=== PATIENT | male | born 1950 | race Caucasian/White ===

== ENCOUNTER 2017-06-15 23:23 | Emergency (ER) | payer MEDICARE, MEDICAID ==
[~2017-06-15] VITALS: Ht 154.9 cm; Wt 86.2 kg
--- NOTE | 2017-06-15 23:48 | NUR ---
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 PT STATES HE HAS A HX OF KIDNEY STONES.
--- NOTE | 2017-06-16 00:14 | NUR ---
Patient in bed, RR even and unlabored. Denies cardiopulmonary distress at this time. No chest pain at this time. Family at bedside.
[2017-06-16] MEDS ORDERED: ONDANSETRON 4 MG/2 ML VIAL IV ONE (00:15)
[2017-06-16] MEDS ORDERED: MORPHINE SULFATE 2 MG/1 ML DISP.SYRIN IV ONE (00:15)
[2017-06-16] MEDS ORDERED: IV NORMAL SALINE 1000 ML BAG IV ONE (00:15)
[2017-06-16] MEDS ORDERED: MORPHINE SULFATE 4 MG/1 ML DISP.SYRIN ONE (00:16)
[2017-06-16] MEDS ORDERED: ONDANSETRON 4 MG/2 ML VIAL ONE (00:16)
--- NOTE | 2017-06-16 00:25 | NUR ---
LAB AT PT BEDSIDE FOR BLOOD DRAW.
[2017-06-16 00:38] LABS: BASOPHILS # (AUTO) 0.1 K/uL (0.0-8.0); BASOPHILS % (AUTO) 0.7 % (0.0-2.0); EOSINOPHILS # (AUTO) 0.1 K/uL (0.0-0.7); HEMATOCRIT 40.8 % (36.7-47.1); LYMPHOCYTES # (AUTO) 2.6 K/uL (20.0-40.0); LYMPHOCYTES % (AUTO) 22.7 % (20.5-51.5); MEAN CORPUSCULAR HEMOGLOBIN 31.3 uug (23.8-33.4); MEAN CORPUSCULAR HGB CONC 34 g/dL (32.5-36.3); MEAN CORPUSCULAR VOLUME 91.3 fL (73.0-96.2); MONOCYTES # (AUTO) 0.9 K/uL (2.0-10.0); MONOCYTES % (AUTO) 8.2 % (0.0-11.0); NEUTROPHILS # (AUTO) 7.7 K/uL (1.8-8.9); NEUTROPHILS % (AUTO) 67.4 % (38.5-71.5); PLATELET COUNT (AUTO) 244 K/uL (152-348); RED BLOOD CELL COUNT(AUTO) 4.47 MIL/uL (4.06-5.63); WHITE BLOOD COUNT (AUTO) 11.4 K/uL (3.6-10.2)
[2017-06-16 00:58] LABS: CREATININE 1.2 mg/dL (0.6-1.3); POTASSIUM 3.9 mmol/L (3.5-5.1)
[2017-06-16 01:11] LABS: BILIRUBIN,DIRECT 0.1 mg/dL (0.0-0.2); BILIRUBIN,TOTAL 0.3 mg/dL (0.2-1.0); TOTAL PROTEIN, SERUM 7.5 g/dL (6.4-8.2)
--- NOTE | 2017-06-16 01:22 | NUR ---
Leslie shook in [facility] - 06/16/17 at 0125 by ARIAS Patient out of ER for CT scan.
--- NOTE | 2017-06-16 01:25 | NUR ---
Patient refused CT scan.
--- NOTE | 2017-06-16 01:41 | NUR ---
Patient discharged to home in stable conditon. Written and verbal after care instructions given. Patient verbalizes understanding of instructions. Ambulated from ER with stable gait. All belongings with patient. Peripheral IV removed prior to dischrage.
[2017-06-16 01:42] VITALS: BP 140/87
--- NOTE | 2017-06-16 01:42 | NUR ---
Patient will be driven home by son in private vehicle.
== END 2017-06-16 01:43 | disposition home or self-care (01) ==
LOC: ER 23:25
DX: N20.1 Calculus of ureter (principal); Z87.891 Personal history of nicotine dependence
CPT/HCPCS: 36415; 70030-TC; 83690; 85025; 85730; 93005; A4663; J2270; J2405; J7030